=== PATIENT | female | born 1985 | race Caucasian/White ===

== ENCOUNTER → 2020-12-07 | Outpatient (CLI) | payer MEDICAID ==
[2020-12-07 09:03] LABS: BASO # 0.05 (0.02-0.10); EOS # 0.26 (0.04-0.40); EOS % 2.7 % (1.0-5.0); HEMATOCRIT 39.6 % (37.0-47.0); HEMOGLOBIN 12.4 g/dL (12.5-16.0); LYMPH# 2.16 (1.50-4.00); MEAN CELL VOLUME 83 fl (78-100); MEAN CORPUSCULAR HEMOGLOBIN 26 pg (27-31); MEAN CORPUSCULAR HGB CONC 31 g/dL (33-37); MEAN PLATELET VOLUME 9.2 fl (7.4-10.4); MONO # 0.42 (0.20-0.80); NEU # 6.75 (1.40-6.50); PLATELET COUNT 351 K/mm3 (130-400); RED BLOOD COUNT 4.76 M/mm3 (4.10-5.30); RED CELL DISTRIBUTION WIDTH 15.2 % (11.5-14.5); WHITE BLOOD COUNT 9.7 K/mm3 (4.8-10.8)
[2020-12-07 09:18] LABS: POTASSIUM 4.4 mmol/L (3.5-5.1)
[2020-12-07 09:19] LABS: ALBUMIN 3.7 g/dL (3.5-5.0)
[2020-12-07 09:20] LABS: CALCIUM 9.3 mg/dL (8.3-10.5)
[2020-12-07 09:21] LABS: TOTAL PROTEIN 7.2 g/dL (6.4-8.3)
[2020-12-07 09:23] LABS: TOTAL BILIRUBIN 0.3 mg/dL (0.2-1.2)
== END ==
LOC: LAB 08:29
PROVIDERS: Nurse Practitioner Primary Care
DX: Z00.00 Encounter for general adult medical examination without abnormal findings (principal)

== ENCOUNTER → 2021-01-07 | Outpatient (CLI) | payer MEDICAID ==
[2021-01-07 10:55] LABS: HEMATOCRIT 38.4 % (37.0-47.0); HEMOGLOBIN 11.8 g/dL (12.5-16.0); MEAN PLATELET VOLUME 9.1 fl (7.4-10.4); RED BLOOD COUNT 4.61 M/mm3 (4.10-5.30); RED CELL DISTRIBUTION WIDTH 14.9 % (11.5-14.5); WHITE BLOOD COUNT 10.7 K/mm3 (4.8-10.8)
== END ==
LOC: LAB 08:46 → RAD 08:46
DX: N93.9 Abnormal uterine and vaginal bleeding, unspecified (principal)

== ENCOUNTER → 2021-11-21 | Outpatient (CLI) | payer BC, MEDICAID | LOC: RAD 10:21 | DX: M25.562 Pain in left knee (principal); M79.671 Pain in right foot ==